=== PATIENT | male | born 1955 | race Caucasian/White ===

== ENCOUNTER 2016-08-12 16:09 | Inpatient (IN) | payer OTHER ==
[2016-08-12] MEDS ORDERED: NS 1,000 ML IV ONE (16:25)
[2016-08-12] MEDS ORDERED: methylPREDNISolone SOD SUCC 125 MG/2 ML VIAL IVP ONE (16:25)
[2016-08-12] MEDS ORDERED: RANITIDINE 50 MG/2 ML VIAL IVP ONE (16:25)
--- NOTE | 2016-08-12 16:25 | EDPHY ---
H & P Stated Complaint: throat discomfort, ?Allergic Reaction Source: Patient - Personal History Current Tetanus Diphtheria and Acellular Pertussis (TDAP): Yes Tetanus Vaccine Date: <10 yrs - Medical/Surgical History Hx Asthma: No Hx Chronic Respiratory Disease: No Hx Diabetes: No Hx Cardiac Disease: No Hx Renal Disease: No Hx Cirrhosis: No Hx Alcoholism: No Hx HIV/AIDS: No Hx Splenectomy or Spleen Trauma: No Other PMH: HTN, MELIDA - Social History Smoking Status: Never smoked Time Seen by Provider: 08/12/16 16:19 HPI/ROS: CHIEF COMPLAINT: Throat swelling HISTORY OF PRESENT ILLNESS: This is a 60-year-old male presenting to the emergency department complaining of throat swelling. Patient states he ate lunch about [id number] avocado soup with a roast beef sandwich, maybe about 30 minutes to an hour afterwards he was feeling like his throat closing with some difficulty swallowing, but did tolerate fluids without difficulty. Patient reports maybe "an allergic reaction to something I ate" . He states for the past couple hours he felt like it has worsened, no shortness of breath. Patient states he does not feel like he has something stuck in his throat. Some rash noted to his chest and face REVIEW OF SYSTEMS: Constitutional: No fever chills Eyes: No visual changes ENT: Report feels like his throat was closing Respiratory: No shortness of breath Cardiac: No chest pain Gastrointestinal: No nausea vomiting Musculoskeletal: No back pain Skin: Red rash to face and chest Neurological: No headache or dizziness (Mima Quevedo) - Physical Exam Exam: General Appearance: Alert, no distress, but appears uncomfortable Eyes: Pupils equal and round no pallor or injection. ENT, Mouth: Mucous membranes moist. Tonsillar edema, uvula midline no uvula edema, airway patent. No angioedema Respiratory: There are no retractions, lungs are clear to auscultation Cardiovascular: Regular rate and rhythm. Gastrointestinal: Abdomen is soft and nontender Neurological: No focal deficits Skin: Warm and dry, erythemic rash to chest and cheeks Musculoskeletal: Neck is supple nontender. Extremities: symmetrical, full range of motion. Psychiatric: Patient is oriented X 3, there is no agitation (Mima Quevedo) Constitutional: Initial Vital Signs Temperature (C) 36.7 C 08/12/16 16:11 Heart Rate 65 08/12/16 16:11 Respiratory Rate 18 08/12/16 16:11 Blood Pressure 166/111 H 08/12/16 16:11 O2 Sat (%) 97 08/12/16 16:11 O2 Delivery Mode Room Air Allergies/Adverse Reactions: No Known Allergies Allergy (Unverified 06/17/15 10:53) Home Medications: Medication Instructions Recorded Nebivolol HCl [Bystolic 5 mg (*)] 5 mg PO HS 07/09/15 Sildenafil Citrate [Viagra] 100 mg PO DAILY PRN 07/09/15 Acetaminophen [Tylenol 325mg (*)] 325 - 650 mg PO Q6 PRN #60 tab 07/10/15 Aspirin EC [Aspirin EC 325 mg (*)] 325 mg PO DAILY #20 tab 07/10/15 Docusate Sodium [Colace 100 MG (*)] 100 mg PO BID #20 cap 07/10/15 HYDROcodone/APAP 10/325 [Tillman 1 - 2 tab PO Q6 PRN #60 tab 07/10/15 10/325 (*)] Nebivolol HCl [Bystolic 5 mg (*)] 5 mg PO HS #0 tab 07/10/15 celeCOXIB [Celebrex (*)] 200 mg PO DAILY #20 cap 07/10/15 oxyCODONE IR [Oxycodone Ir (*)] 5 mg PO Q6 PRN #30 tab 07/10/15 Medical Decision Making - Diagnostics EKG Interpretation: EKG: Complete interpretation has been separately recorded in the [facility] archive. Summary impression: Sinus rhythm (Francisco Traylor) ED Course/Re-evaluation: Discussed plan of care: IV Benadryl, Solu-Medrol, ranitidine, ekg (Mima Quevedo) Other Provider: I evaluated and participated in the management of the patient. I also evaluated the patient independently. My co-signature indicates that I have reviewed this chart and I agree with the findings and plan of care as documented. My personal H&P findings include: The patient presents to the ED with sudden onset hoarseness, laryngeal pain after eating a roast beef sandwich. The patient is able to manage his secretions. PHYSICAL: General Appearance: Alert, mild discomfort with swallowing Eyes: Pupils equal and round no pallor or injection ENT, Mouth: No stridor, laryngitis noted Respiratory: There are no retractions, lungs are clear to auscultation Cardiovascular: Regular rate and rhythm Gastrointestinal: Abdomen is soft and nontender, no masses, bowel sounds normal Neurological: A&O, normal motor function, normal sensory exam, normal cranial nerves Skin: Warm and dry, no rashes Musculoskeletal: Neck is supple nontender Extremities: symmetrical, full range of motion The patient presents to emergency department laryngeal pain and hoarseness. The patient is able to drink water here without regurgitation. The etiology of his symptoms are uncertain. I did consult with Dr. Jorge Rodriguez who is on- call for ENT who will evaluate the patient. (Francisco Traylor) - Data Points Medications Given: Discontinued Medications Diphenhydramine HCl (Benadryl Injection) 50 mg IVP EDNOW ONE Stop: 08/12/16 16:26 Last Admin: 08/12/16 16:51 Dose: 50 mg Sodium Chloride (Ns) 1,000 mls @ 0 mls/hr IV ONCE ONE PRN Reason: Wide Open Stop: 08/12/16 16:26 Last Admin: 08/12/16 16:51 Dose: 1,000 mls Methylprednisolone Sodium Succinate (Solu-Medrol) 125 mg IVP EDNOW ONE Stop: 08/12/16 16:26 Last Admin: 08/12/16 16:51 Dose: 125 mg Ranitidine HCl (Zantac) 50 mg IVP EDNOW ONE Stop: 08/12/16 16:26 Last Admin: 08/12/16 16:51 Dose: 50 mg Departure - Departure Condition: Good Referrals: Veto Preciado MD [Primary Care Provider] - As per Instructions
--- NOTE | 2016-08-12 17:19 | CPEKG ---
Heart Rate: 58 RR Interval: 1034 P-R Interval: 184 QRSD Interval: 118 QT Interval: 428 QTC Interval: 421 P [place]: 44 QRS [place]: 23 T Wave [place]: 16 EKG Severity - ABNORMAL ECG - EKG Impression: SINUS RHYTHM EKG Impression: NONSPECIFIC INTRAVENTRICULAR CONDUCTION DELAY Electronically Signed By: Francisco Traylor 12-Aug-2016 17:20:46
[2016-08-12] MEDS ORDERED: DEXAMETHASONE 10 MG/ML VIAL IVP ONE (17:50)
[2016-08-12 18:12] LABS: % IMMATURE GRANULYOCYTES 0.3 % (0.0-1.1); ABSOLUTE IMMATURE GRANULOCYTES 0.02 10^3/uL (0.00-0.10); ADD DIFF? NO; ADD MORPH? NO; ADD SCAN? NO; ATYPICAL LYMPHOCYTE FLAG 0 (0-99); FRAGMENT RBC FLAG 0 (0-99); HEMATOCRIT 44.3 % (40.0-51.0); HEMOGLOBIN 14.9 g/dL (13.7-17.5); LEFT SHIFT FLG 0 (0-99); LIPEMIA HEMOLYSIS FLAG 80 (0-99); MEAN CELL HEMOGLOBIN 31.4 pg (27.9-34.1); MEAN CELL HEMOGLOBIN CONCENTR. 33.6 g/dL (32.4-36.7); MEAN CELL VOLUME 93.5 fL (81.5-99.8); MEAN PLATELET VOLUME 10.7 fL (8.7-11.7); PLATELET CLUMPS FLAG 0 (0-99); PLATELET COUNT 207 10^3/uL (150-400); RED BLOOD CELL COUNT 4.74 10^6/uL (4.40-6.38); RED CELL DISTRIBUTION WIDTH 13.1 % (11.5-15.2)
[2016-08-12 18:18] LABS: ANION GAP 10 mEq/L (8-16); CALCIUM 10.3 mg/dL (8.5-10.4); CARBON DIOXIDE 24 mEq/l (22-31); CHLORIDE 106 mEq/L (97-110); CREATININE 1.2 mg/dL (0.7-1.3); GLOMERULAR FILTRATION RATE > 60; GLUCOSE 114 mg/dL (70-100); POTASSIUM 4.2 mEq/L (3.5-5.2); SODIUM 140 mEq/L (134-144)
[2016-08-12] MEDS ORDERED: ONDANSETRON 4 MG/2 ML VIAL IVP PRN (18:30)
[2016-08-12] MEDS ORDERED: ONDANSETRON DISINTEGRATING 4 MG TAB PO PRN (18:30)
[2016-08-12] MEDS ORDERED: ACETAMINOPHEN 325 MG TAB PO PRN (18:30)
--- NOTE | 2016-08-12 18:56 | GCON ---
[f rep st] CONSULTATION ER CONSULTATION NOTE DATE OF CONSULTATION: 08/12/2016 REFERRING PHYSICIAN: Francisco Traylor MD REASON FOR CONSULTATION: Acute sore throat, complains of pain with swallowing. HISTORY: The patient is an otherwise healthy 60-year-old man who after eating lunch today began to feel a sense of left-sided throat discomfort and fullness. The patient had a feeling that maybe agustin ething stuck in his throat, and he presents to the ER. PHYSICAL EXAMINATION: GENERAL: Patient is awake, alert, and oriented. His voice is rather quiet, but he is speaking in full sentences with no stridor or retractions. HEENT: Ear exam shows normal external ears, ear canals, and tympanic membranes bilaterally with no signs of middle ear disease. Nasal exam anteriorly is clear. Oral cavity exam shows no trismus. Palate, tongue, and floor of mo uth are normal in appearance. Tonsils appear symmetric. No posterior erythema is noted. NECK: Ex am shows no swelling or adenopathy which is palpable. There is very slight discomfort with deep pal pation of the left side of the neck. PROCEDURE: A flexible fiberoptic laryngoscopy. I passed the flexible laryngoscope through the right nostril. Nasal passage is clear. I looked at the left side, and likewise there was no signs of polyps or infection within either side of the nose . Nasopharyngeal exam is normal. Eustachian tube openings and fossa of Rosenmuller are normal in a ppearance. Hypopharynx larynx exam is notable for watery edema of the left half of the epiglottis and extending down onto the left area of epiglottic fold. The vocal cords were both fully visible and moved norm ally on phonation and respiration. No pooling of secretions is noted. Base of tongue is normal. T he inferior aspect of the tonsil on the left side showed some erythema. I took a culture of the left side of the throat with a swab which will be sent off for a wound cultu re. LABORATORY DATA: I requested a CBC with differential, which is pending. IMPRESSION/PLAN: Acute epiglottitis. The patient is stable at this point in time. He has already gotten 1 dose of Solu-Medrol. I reviewed the case with the emergency room physician and actually sh owed him the physical findings on laryngoscopy. The patient is given ceftriaxone and 12 mg of IV De cadron in the ER and will be admitted for observation in the step-down intensive care unit. If his symptoms worsen, he might require stabilization of the airway. I did discuss this with the patient and his . On rare occasions, people can have rapid and significant improvement; however, someti mes it can go in the other direction and they can end up with life-threatening airway compromise. Thank for this consultation. /[id number]/MODL
[2016-08-12] MEDS ORDERED: hydrALAZINE 20 MG/ML VIAL IVP PRN (20:08)
--- NOTE | 2016-08-12 20:31 | GHP ---
[f rep st] HISTORY AND PHYSICAL DATE OF ADMISSION: 08/12/2016 CHIEF COMPLAINT: Difficulty swallowing. HISTORY OF PRESENT ILLNESS: A 60-year-old male with limited past medical history who [facility] the morning of presentation. Patient notes eating lunch and afterwards having a sensation of soreness in his throat that then progressed to a sensation that his throat was tighten ing and closing. He started developing difficulty swallowing including his own secretions, therefor e, sought care in the emergency department. In the ED he is denying any chest pain, denying shortness of breath, denying cough, denying recent f shruti, chills or upper respiratory infection. Denying abdominal pain, nausea, vomiting, dysuria, he maturia or lower extremity edema. Has no known sick contacts. Explains that his throat closing sen sation has been progressive since after lunch with a very scary feeling of not being able to get air or manage his own secretions. At the time of my evaluation, he is describing that this improved mi ldly, approximately 10% from when he initially presented to the ED. PAST MEDICAL HISTORY: Hypertension. SOCIAL HISTORY: Negative for tobacco. Drinks several drinks of alcohol a day. Denies illicit drug s. Occasional use of marijuana. FAMILY HISTORY: Positive for hypertension. ADVANCED DIRECTIVES: Patient is full cor, full tube. His would be his medical decision-maker. REVIEW OF SYSTEMS: A 10-point review of systems is negative with the exception of that reported in the HPI. PHYSICAL EXAMINATION: VITAL SIGNS: Blood pressure 166/111, heart rate 61, respiratory rate 18, 97% on room air. GENERAL: This is a healthy-appearing male in mild distress. HEENT: Exam is normal for dry mucous membranes. Oropharynx without obvious swelling or pustules. No notable cervical lym phadenopathy. CARDIAC: Patient is regular rate and rhythm. PULMONARY: Clear to auscultation bila terally. GASTROINTESTINAL: Positive bowel sounds. ABDOMEN: Soft and nontender. MUSCULOSKELETAL: Negative for any lower extremity edema. SKIN: Exam is negative for any rashes. NEUROLOGIC: He is alert and oriented x3. PSYCHIATRIC: He is pleasant and cooperative on interview and examination . DATA: EKG, which I personally reviewed and interpreted, shows sinus rhythm, normal axis, normal int ervals, with no acute ST-T changes. LABORATORY: White count is 6.3, hematocrit 44, creatinine 1.2. ASSESSMENT AND PLAN: This is a 60-year-old male presenting with throat swelling and pain. 1. Acute epiglottitis. Patient was evaluated by ENT in the emergency department. Flexible laryngo scope did show epiglottitis. The patient is treated with IV steroids, IV antibiotics and will be ad mitted to the stepdown unit for close monitoring. Cultures were obtained during his ENT examination . We will follow those. 2. Hypertension. Will continue his home medications when he is cleared to take oral intake. Until that time, can use p.r.n. IV medications. 3. Prophylaxis with Lovenox. DIET: N.p.o. DISPOSITION: I expect less than 2 midnights as the patient response to IV steroids and treatment fo r epiglottitis. Discussed the case with the emergency room physician. The patient will be admitted to the stepdown unit overnight for observation and care. /[id number]/MODL
[2016-08-13 05:20] LABS: % IMMATURE GRANULYOCYTES 0.5 % (0.0-1.1); ABSOLUTE IMMATURE GRANULOCYTES 0.05 10^3/uL (0.00-0.10); ADD DIFF? NO; ADD MORPH? NO; ADD SCAN? NO; ATYPICAL LYMPHOCYTE FLAG 0 (0-99); FRAGMENT RBC FLAG 0 (0-99); HEMATOCRIT 45.1 % (40.0-51.0); HEMOGLOBIN 15.9 g/dL (13.7-17.5); LEFT SHIFT FLG 0 (0-99); LIPEMIA HEMOLYSIS FLAG 90 (0-99); MEAN CELL HEMOGLOBIN 31.5 pg (27.9-34.1); MEAN CELL HEMOGLOBIN CONCENTR. 35.3 g/dL (32.4-36.7); MEAN CELL VOLUME 89.5 fL (81.5-99.8); MEAN PLATELET VOLUME 10.3 fL (8.7-11.7); PLATELET CLUMPS FLAG 0 (0-99); PLATELET COUNT 207 10^3/uL (150-400); RED BLOOD CELL COUNT 5.04 10^6/uL (4.40-6.38); RED CELL DISTRIBUTION WIDTH 12.9 % (11.5-15.2)
--- NOTE | 2016-08-13 08:34 | SOAPPROG ---
SOAP Progress Note Assessment/Plan: Assessment: Mr Dempsey says his throat feels better. Still some difficulty swallowing. Some trismus. NPScope: Bright red left AE fold. Edema to left AE fold. Good glottic airway. WBC is elevated. He did get decadron and ceftriaxone. Plan: Neck CT with contrast. Cool mist by face tent. Increase decadron to 16 mg IV q 8 hours. WIll continue to follow. D/w nursing staff and Chuy. 08/13/16 08:31 Subjective: feels better. Objective: Vital Signs Temp Pulse Resp BP Pulse Ox 37.0 C 82 18 136/108 H 92 08/13/16 08:00 08/13/16 08:00 08/13/16 08:00 08/13/16 08:00 08/13/16 08:00 Laboratory Results 08/13/16 05:00 08/12/16 08/13/16 08/14/16 05:59 05:59 05:59 Intake Total 1140 Balance 1140 ICD10 Worksheet Patient Problems: Problems Problem Status Onset Lesion of epiglottis Acute - ICD10 Problem Qualifiers (1) Lesion of epiglottis
[2016-08-13] MEDS ORDERED: DEXAMETHASONE 10 MG/ML VIAL IVP SCH (09:00)
[2016-08-13] MEDS ORDERED: IOPAMIDOL (ISOVUE-300) 100 ML BTL IV ONE (09:12)
[2016-08-13] MEDS: ENOXAPARIN 40 MG/0.4 ML SYR SC SCH (09:13)
[2016-08-13] MEDS: cefTRIAXone 1 GM in D5W 50 ML IV SCH (09:14)
[2016-08-13] MEDS: DEXAMETHASONE 10 MG/ML VIAL IVP SCH ×3 (09:14→21:54)
--- NOTE | 2016-08-13 11:16 | SOAPPROG ---
SOAP Progress Note Assessment/Plan: Assessment: Mr Dempesy says his throat feels better. Still some difficulty swallowing. Some trismus. NPScope: Bright red left AE fold. Edema to left AE fold. Good glottic airway. WBC is elevated. He did get decadron and ceftriaxone. Plan: Neck CT with contrast. Cool mist by face tent. Increase decadron to 16 mg IV q 8 hours. WIll continue to follow. D/w nursing staff and Chuy. 08/13/16 08:31 Objective: Vital Signs Temp Pulse Resp BP Pulse Ox 37.0 C 88 16 136/108 H 96 08/13/16 08:00 08/13/16 08:32 08/13/16 08:32 08/13/16 08:00 08/13/16 08:32 Laboratory Results 08/13/16 05:00 08/12/16 08/13/16 08/14/16 05:59 05:59 05:59 Intake Total 1140 Balance 1140 ICD10 Worksheet Patient Problems: Problems Problem Status Onset Lesion of epiglottis Acute - ICD10 Problem Qualifiers (1) Lesion of epiglottis
--- NOTE | 2016-08-13 12:28 | GCON ---
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 HISTORY OF PRESENT ILLNESS: The patient is a very pleasant 60-year-old white male with a past medic al history of hypertension. He presented to the emergency room with difficulty swallowing and sore throat. He felt like his throat was closing progressively yesterday afternoon. He was seen in the emergency room, diagnosed with epiglottitis and placed on steroids and antibiotics, and admitted to the SDU. In discussion with the patient, he states he feels somewhat better. He still has difficul ty swallowing. He is able to speak clearly. He denies any cough or production of sputum. PAST MEDICAL HISTORY: Significant for hypertension. ALLERGIES: No known to medications. SOCIAL HISTORY: No history of tobacco use. He drinks several drinks of alcohol per day. He has go od family support. PHYSICAL EXAM: VITAL SIGNS: Blood pressure is 136/108, pulse 82, respiration 18, temperature 37, o xygen saturation 92% on room air. GENERAL: He is a well-developed, well-nourished 60-year-old whit e male who is resting comfortably in no acute distress. HEENT: Eyes: IVANA. EOMI. Throat exam wa s deferred. NECK: Mild swelling. There is no stridor. HEART: Regular rate and rhythm without mu rmurs, rubs, or gallops. LUNGS: Clear to auscultation. No wheeze or rhonchi. ABDOMEN: Soft, non tender. Bowel sounds present in all 4 quadrants. EXTREMITIES: No clubbing, cyanosis, or edema. LABORATORY DATA: White count is 11, hemoglobin 15, hematocrit 45, platelet count is 207. Sodium 14 0, potassium 4.2, chloride 106, CO2 24, BUN 23, creatinine 1.2, glucose is 114. Group A strep is ne gative. CT scan of the neck shows epiglottitis with diffuse mucous membrane thickening extending from the le ft lingular tonsil at the superior aspect of the vocal cords. IMPRESSION: 1. Epiglottitis. 2. Hypertension. RECOMMENDATIONS: 1. Agree with current antibiotic coverage. 2. Agree with increasing Decadron. 3. Close cardiovascular monitoring. 4. N.p.o. for now. /[id number]/MODL
[2016-08-13] MEDS: LR 1,000 ML IV SCH (12:32)
--- NOTE | 2016-08-13 12:48 | HOSPPROG ---
Hospitalist Progress Note Assessment/Plan: #Acute epiglottis: CT this morning negative for abscess -cont Decadron, CTX and close monitoring of airway. Stable nowl, but at high risk for clinical deterioration #Benign HTN: resume home meds once swallowing better #Disp: patient warrant inpt admission given high risk for airway compromise Subjective: denies SOB Objective: Vital Signs Temp Pulse Resp BP Pulse Ox 37.0 C 88 16 136/108 H 96 08/13/16 08:00 08/13/16 08:32 08/13/16 08:32 08/13/16 08:00 08/13/16 08:32 Laboratory Results 08/13/16 05:00 08/12/16 08/13/16 08/14/16 05:59 05:59 05:59 Intake Total 1140 Balance 1140 - Physical Exam Constitutional: no apparent distress Eyes: PERRL Ears, Nose, Mouth, Throat: moist mucous membranes, other (difficult to open airway) Cardiovascular: regular rate and rhythym Respiratory: no respiratory distress Gastrointestinal: normoactive bowel sounds Genitourinary: no bladder fullness Skin: warm, normal color Musculoskeletal: full muscle strength Neurologic: AAOx3 Psychiatric: interacting appropriately Lymph, Heme, Immunologic: lymphadenopathy (cervical LAD, TTP on left) ICD10 Worksheet Patient Problems: Problems Problem Status Onset Lesion of epiglottis Acute
[2016-08-13] MEDS: CLINDAMYCIN 600 MG/DEXTROSE 50 ML IV SCH ×2 (12:52→18:07)
--- NOTE | 2016-08-13 15:23 | GCON ---
[f rep st] CONSULTATION We scoped the patient at the bedside again. He feels subtlety perhaps. On flexible nasal laryngoscopy, the erythema is still on the left base of tongue/ lingual tonsils and left area of epiglottic fold. There is certainly some edema to the left arytenoid but he has a good glottic airway. I think it is subtly better than this morning on scoping. He and I agreed to continue the current plan. We will continue to reevaluate. /[id number]/MODL MTDD
--- NOTE | 2016-08-13 18:33 | GCON ---
[f rep st] CONSULTATION I reviewed the patient's CT scans. I spoke with his nursing staff. His scans do not show an obviou s abscess. Certainly has some edema and phlegmon in the left base of tongue and lingual tonsillar a dior. I did review the scans with my partner, Dr. Carrera, as well. Since the patient is improving, we wi ll continue medical management with close observation for now. I stressed the importance with the p neva and his to communicate with us if he seems to be worsening in any way. He said when he was admitted his throat pain was 12/10 and now it is 4/10 in terms of his difficulty swallowing or p ain when he swallows. 1. I did add cool mist which is helping nicely. 2. I will keep him n.p.o. I did start some fluids, 125 mL/hr. 3. I did add clindamycin 600 mg every 6 hours to his antibiotic regimen. /[id number]/MODL
--- NOTE | 2016-08-13 18:38 | GPROG ---
[f rep st] PROGRESS NOTE SUBJECTIVE: The patient feels "much, much better." Swallowing better. Speaking better. PHYSICAL EXAM: VITAL SIGNS: He is afebrile. Vital signs are stable. HEENT: Voice is much improved. Flexible nasal laryngoscopy was performed and he does still have some edema in that left area epiglo ttic fold and there is certainly some edema to his left arytenoid. He has a good glottic airway and mobile cords. It is certainly stable. Definitely not worse. IMPRESSION: Overall improving. RECOMMENDATIONS: 1. Spoke with the nursing staff as well as the patient and his . Will continue Decadron, ceftr iaxone, clindamycin, high humidity and cool mist. 2. We will continue to follow along. /[id number]/MODL
[2016-08-14] MEDS: CLINDAMYCIN 600 MG/DEXTROSE 50 ML IV SCH ×3 (00:38→11:43)
[2016-08-14] MEDS: LR 1,000 ML IV SCH (00:38)
[2016-08-14] MEDS: DEXAMETHASONE 10 MG/ML VIAL IVP SCH ×2 (06:39→13:22)
[2016-08-14 07:48] VITALS: RESP 15
[2016-08-14] MEDS: cefTRIAXone 1 GM in D5W 50 ML IV SCH (08:45)
[2016-08-14] MEDS: ENOXAPARIN 40 MG/0.4 ML SYR SC SCH (08:47)
--- NOTE | 2016-08-14 08:55 | GPROG ---
[f rep st] PROGRESS NOTE DATE OF SERVICE: 08/14/2016 SUBJECTIVE: The patient feels much, much better. OBJECTIVE: Afebrile. Blood pressure just slightly elevated. Voice is much stronger. The patient was seen and examined with Dr. Jorge Rodriguez. We also reviewed scans together as well . Flexible nasal laryngoscopy was performed together and his left lingula tonsil is much improved. Much less erythema. The left aryepiglottic fold still has some edema but it is much less erythemat ous. The left arytenoid is less edematous as well. He has a good glottic airway. No trismus. Opens his mouth widely. Parotids are palpably benign. Neck without thyromegaly or lym phadenopathy. Cultures show mixed alicia. IMPRESSION: Improving left base of tongue aryepiglottic fold phlegmon. RECOMMENDATIONS: 1. Dr. Rodriguez and I discussed with his nursing staff in detail as well as the patient. Will hav e him get his noon dose of clindamycin as well as Dexamethasone. He is getting his ceftriaxone at 9 o'clock. 2. Will allow him to go home today with clindamycin 300 mg p.o. t.i.d. for ten days. Diarrhea warn ing was given. 3. Omnicef 300 mg p.o. b.i.d. for ten days. 4. Decadron taper. Scripts were written and given to the nursing staff. 5. He will go home and he can use his CPAP at home. 6. He will follow up on Tuesday with Dr. Rodriguez in the office. /[id number]/MODL
--- NOTE | 2016-08-14 09:36 | PDINTPN ---
Economic Geographer Progress Note Assessment/Plan: Assessment: * Epiglottitis-markedly improved * Hypertension * Respiratory-currently at baseline Plan: Likely home today Subjective: Resting comfortably. Denies any shortness of breath cough or production of sputum. He has no difficulty swallowing. Objective: Vital Signs Temp Pulse Resp BP Pulse Ox 36.8 C 77 15 142/81 H 90 L 08/14/16 07:45 08/14/16 07:45 08/14/16 07:45 08/14/16 07:45 08/14/16 07:45 08/13/16 08/14/16 08/15/16 05:59 05:59 05:59 Intake Total 2140 Balance 2140 Physical Exam - Physical Exam General Appearance: alert, no apparent distress EENT: PERRL/EOMI Neck: non-tender, full range of motion, supple, normal inspection Respiratory: chest non-tender, lungs clear, normal breath sounds Cardiac/Chest: normal peripheral pulses, regular rate, rhythm Peripheral Pulses: 2+: carotid (R), carotid (L), femoral (R), femoral (L), dorsalis-pedis (R), dorsalis-pedis (L) Abdomen: normal bowel sounds, non-tender, soft Male Genitalia: deferred Rectal: deferred ICD10 Worksheet Patient Problems: Problems Problem Status Onset Lesion of epiglottis Acute
[2016-08-14 12:07] VITALS: BP 124/94; PULSE 85; TEMP 97.8; O2SAT 92
--- NOTE | 2016-08-14 13:05 | GDS ---
[f rep st] DISCHARGE SUMMARY DISCHARGE DIAGNOSES: 1. Acute epiglottitis. 2. Benign hypertension. HISTORY: This is a 60-year-old male who presented with difficulty swelling. HOSPITAL COURSE: The patient was diagnosed with acute epiglottitis by laryngoscope in the emergency department. He was treated with IV antibiotics and steroids. He was continued to be followed by David NT. On day of discharge, his pain and difficulty swallowing had almost completely resolved. He has been eating normally. He will be discharged on a course of antibiotics as well as steroids. Greater than 30 minutes was spent on discharge. /[id number]/MODL
== END 2016-08-14 13:43 | disposition home or self-care (01) | DRG 153 ==
LOC: F2N 22:24 → OBSVTOIN 08-13 12:45
PROVIDERS: ADMIT Hospitalist; ATTEND Internal Medicine
PROC: 0CJS7ZZ Inspection of Larynx, Via Natural or Artificial Opening (ICD-10-PCS; principal; 2016-08-13)
DX: J05.10 Acute epiglottitis without obstruction (principal); I10 Essential (primary) hypertension
CPT/HCPCS: 96374; G0378; J0696; J1200; J1650; J2780; Q9967

== ENCOUNTER 2016-12-11 10:30 | Inpatient (IN) | payer OTHER ==
[2016-12-11] MEDS ORDERED: NS 1,000 ML IV ONE (10:38)
--- NOTE | 2016-12-11 10:41 | EDPHY ---
H & P Stated Complaint: DIZZY, FATIGUE, L ARM NUMBNESS Time Seen by Provider: 12/11/16 10:30 HPI/ROS: CHIEF COMPLAINT: Pre syncope HISTORY OF PRESENT ILLNESS: The patient is a 61-year-old man with a history of hypertension and heart palpitations and sleep apnea who comes to the emergency department complaining of a pre syncopal event during the Alzheimer's walk today. He states that he typically walks 8 miles each day and that it does not cause any problems. Today after only a few miles he began to feel a brief numbness in his left thigh that resolved almost immediately but then he developed numbness in his left arm and lightheadedness and became diaphoretic. He decided to stop walking. He never experienced any chest pain or shortness of breath. No nausea vomiting. He denies any focal weakness. Paramedics arrived and found him to be hypertensive and diaphoretic. There EKG was unremarkable. The patient states he now feels back to normal. He had a stress test in 2013 that was negative. REVIEW OF SYSTEMS: Constitutional: denies: chills, fever, recent illness, recent injury EENTM: denies: blurred vision, double vision, nose congestion Respiratory: denies: cough, shortness of breath Cardiac: See HPI Gastrointestinal/Abdominal: denies: abdominal pain, diarrhea, nausea, vomiting, blood streaked stools Genitourinary: denies: dysuria, frequency, hematuria, pain Musculoskeletal: denies: joint pain, muscle pain Skin: denies: lesions, rash, jaundice, bruising Neurological: denies: headache, numbness, paresthesia, tingling, dizziness, weakness Hematologic/Lymphatic: denies: blood clots, easy bleeding, easy bruising Immunologic/allergic: denies: HIV/AIDS, transplant EXAM: GENERAL: Well-appearing, overweight and in no acute distress. HEAD: Atraumatic, normocephalic. EYES: Pupils equal round and reactive to light, extraocular movements intact, sclera anicteric, conjunctiva are normal. ENT: TMs normal, nares patent, oropharynx clear without exudates. Moist mucous membranes. NECK: Normal range of motion, supple without lymphadenopathy or JVD. LUNGS: Breath sounds clear to auscultation bilaterally and equal. No wheezes rales or rhonchi. HEART: Regular rate and rhythm without murmurs, rubs or gallops. ABDOMEN: Soft, nontender, normoactive bowel sounds. No guarding, no rebound. No masses appreciated. BACK: No CVA tenderness, no spinal tenderness, step-offs or deformities EXTREMITIES: Normal range of motion, no pitting or edema. No clubbing or cyanosis. NEUROLOGICAL: Cranial nerves II through XII grossly intact. Normal speech, normal gait. 5/5 strength, normal movement in all extremities, normal sensation PSYCH: Normal mood, normal affect. SKIN: Warm, dry, normal turgor, no visible rashes or lesions. Source: Patient Exam Limitations: No limitations - Personal History Current Tetanus/Diphtheria Vaccine: Yes Tetanus Vaccine Date: <10 yrs - Medical/Surgical History Hx Asthma: No Hx Chronic Respiratory Disease: No Hx Diabetes: No Hx Cardiac Disease: No Hx Renal Disease: No Hx Cirrhosis: No Hx Alcoholism: No Hx HIV/AIDS: No Hx Splenectomy or Spleen Trauma: No Other PMH: HTN, MELIDA - Family History Significant Family History: No pertinent family hx - Social History Smoking Status: Never smoked Alcohol Use: Sober Drug Use: None Constitutional: Initial Vital Signs Temperature (C) 36.9 C 12/11/16 10:36 Heart Rate 67 12/11/16 10:36 Respiratory Rate 16 12/11/16 10:36 Blood Pressure 147/99 H 12/11/16 10:36 O2 Sat (%) 98 12/11/16 10:36 O2 Delivery Mode Room Air O2 (L/minute) 2 Allergies/Adverse Reactions: No Known Allergies Allergy (Unverified 06/17/15 10:53) Home Medications: Medication Instructions Recorded Nebivolol HCl [Bystolic 5 mg (*)] 5 mg PO HS #0 tab 07/10/15 Aspirin [Aspirin 81mg (*)] 81 mg PO HS 08/12/16 Sildenafil Citrate [Viagra 50 MG 100 mg PO DAILY PRN 08/12/16 (*)] Medical Decision Making - Diagnostics EKG Interpretation: An EKG obtained and was read and documented in trace view. Please see trace view for full reading and report. Sinus rhythm, no acute ischemic changes, similar to previous ED Course/Re-evaluation: 11:20 a.m. while in the room on the monitor the patient had a 12 second run of V -tach that spontaneously converted back to sinus rhythm. We will place him on defibrillator pads and admit to the hospital. I have paged Cardiology. He is personal friends with Dr. Alexander. 11:[address] Alexander is here evaluating the patient. 11:50 a.m. they will take him to the clinical lab specialist but would like to admit to the hospital service. Spoke with Dr. Mejia who accepted for Dr. Tyler. Differential Diagnosis: Partial list of the Differential diagnosis considered include but were not limited to; arrhythmia, acute coronary disease and although unlikely based on the history and physical exam, I also considered infection, pneumothorax, CVA. Critical Care Time: Critical care time spent by me, Dr. Mars exclusive with this patient was 35 minutes, exclusive of the PA time exclusive of procedures. The organ system that was at risk was cardiovascular and I gave monitoring, consultation and admission to prevent worsening of the patient's condition - Data Points Laboratory Results: Laboratory Results 12/11/16 10:40 12/11/16 10:40 Medications Given: Atorvastatin Calcium (Lipitor) 10 mg PO DAILY JESSEE Stop: 06/10/17 11:14 Last Admin: 12/12/16 14:15 Dose: 10 mg Enoxaparin Sodium (Lovenox) 40 mg SC DAILY JESSEE Stop: 06/10/17 08:59 Last Admin: 12/12/16 14:15 Dose: 40 mg Nebivolol (Bystolic) 5 mg PO HS JESSEE Stop: 06/09/17 20:59 Last Admin: 12/12/16 20:32 Dose: 5 mg Discontinued Medications Aspirin (Aspirin) 81 mg PO HS JESSEE Stop: 06/09/17 20:59 Last Admin: 12/11/16 20:18 Dose: 81 mg Aspirin Buffered (Aspirin Ec) 325 mg PO ONCALL ONE Stop: 12/11/16 11:56 Last Admin: 12/11/16 15:53 Dose: Not Given Diazepam (Valium) 5 mg PO ONCALL ONE Stop: 12/11/16 11:56 Last Admin: 12/11/16 15:53 Dose: Not Given Diphenhydramine HCl (Benadryl) 25 mg PO ONCALL ONE Stop: 12/11/16 11:56 Last Admin: 12/11/16 15:53 Dose: Not Given Sodium Chloride (Ns) 1,000 mls @ 0 mls/hr IV EDNOW ONE; Wide Open PRN Reason: Protocol Stop: 12/11/16 10:39 Last Admin: 12/11/16 10:48 Dose: 1,000 mls Departure - Departure Disposition: [facility] Inpatient Acute Clinical Impression: Pre-syncope, V tach Condition: Fair
[2016-12-11 10:47] LABS: % IMMATURE GRANULYOCYTES 0.3 % (0.0-1.1); ABSOLUTE IMMATURE GRANULOCYTES 0.02 10^3/uL (0.00-0.10); ADD DIFF? NO; ADD MORPH? NO; ADD SCAN? NO; ATYPICAL LYMPHOCYTE FLAG 0 (0-99); FRAGMENT RBC FLAG 0 (0-99); HEMATOCRIT 44.7 % (40.0-51.0); LEFT SHIFT FLG 0 (0-99); LIPEMIA HEMOLYSIS FLAG 80 (0-99); MEAN CELL HEMOGLOBIN 31.6 pg (27.9-34.1); MEAN CELL HEMOGLOBIN CONCENTR. 33.6 g/dL (32.4-36.7); MEAN CELL VOLUME 94.3 fL (81.5-99.8); MEAN PLATELET VOLUME 10.2 fL (8.7-11.7); PLATELET CLUMPS FLAG 10 (0-99); PLATELET COUNT 215 10^3/uL (150-400); RED BLOOD CELL COUNT 4.74 10^6/uL (4.40-6.38); RED CELL DISTRIBUTION WIDTH 13.2 % (11.5-15.2)
--- NOTE | 2016-12-11 10:47 | CPEKG ---
Heart Rate: 62 RR Interval: 968 P-R Interval: 184 QRSD Interval: 108 QT Interval: 416 QTC Interval: 423 P Shelton: 48 QRS Shelton: 33 T Wave Shelton: 16 EKG Severity - NORMAL ECG - EKG Impression: SINUS RHYTHM Electronically Signed By: Abdi Mars 11-Dec-2016 10:51:05
[2016-12-11 11:01] LABS: ANION GAP 11 mEq/L (8-16); CALCIUM 10.4 mg/dL (8.5-10.4); CARBON DIOXIDE 26 mEq/l (22-31); CHLORIDE 104 mEq/L (97-110); CREATININE 1.1 mg/dL (0.7-1.3); GLOMERULAR FILTRATION RATE > 60; GLUCOSE 85 mg/dL (70-100); POTASSIUM 4.6 mEq/L (3.5-5.2); SODIUM 141 mEq/L (134-144)
[2016-12-11 11:12] LABS: TROPONIN I < 0.012 ng/mL (0-0.034)
[2016-12-11] MEDS ORDERED: ACETAMINOPHEN 325 MG TAB PO PRN ×2 (11:55→15:46)
[2016-12-11] MEDS ORDERED: ASPIRIN EC 325 MG TAB PO ONE (11:55)
[2016-12-11] MEDS ORDERED: diphenhydrAMINE 25 MG CAP PO ONE (11:55)
[2016-12-11] MEDS ORDERED: NITROGLYCERIN 0.4 MG BTL SL PRN ×2 (11:55→13:53)
[2016-12-11] MEDS ORDERED: TEMAZEPAM 15 MG CAP PO PRN (11:55)
[2016-12-11] MEDS ORDERED: DIAZEPAM 5 MG TAB PO ONE (11:55)
[2016-12-11] MEDS ORDERED: LIDOCAINE 1% 300 MG/30 ML SDV ONE (12:12)
[2016-12-11] MEDS ORDERED: IOPAMIDOL (ISOVUE-370) 150 ML BTL IV ONE ×2 (12:13→12:17)
[2016-12-11] MEDS ORDERED: MIDAZOLAM 2 MG/2 ML VIAL ONE ×2 (12:16→12:52)
--- NOTE | 2016-12-11 13:04 | GHP ---
[f rep st] HISTORY AND PHYSICAL DATE OF ADMISSION: 12/11/2016 INDICATION FOR ADMISSION: Lightheadedness, left-sided numbness and evidence of nonsustained ventricular tachycardia on telemetry monitoring in the emergency department. HISTORY OF PRESENT ILLNESS: The patient is a pleasant 61-year-old gentleman with a past medical history of hypertension, sleep apnea, and status post left total knee replacement, who was in his usual state of health until earlier today. 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 He began to feel lightheaded and diaphoretic. He states the left leg numbness resolved, but then developed left arm numbness. At this point, he sat down. He noticed becoming more and more diaphoretic prompting him to call 12-31- to obtain medical attention. He was evaluated by paramedics and brought to [facility] for further evaluation. His workup with paramedics demonstrated hypertensive and diaphoretic. EKG was unremarkable. Upon his arrival into the emergency room, his initial workup was unremarkable. On telemetry, he did develop a 12 run beat of nonsustained ventricular tachycardia. This was asymptomatic. He denied any palpitations, dizziness, lightheadedness, or near syncope. He denied any associated diaphoresis. He has no complaints of chest pain or chest pressure. The episode resolved spontaneously, and he is back in sinus rhythm, in the mid 60s. His ECG demonstrates sinus rhythm with normal intervals, and nonspecific interventricular conduction delay, with QRS duration of 108 milliseconds. The patient states he has noticed increasing fatigue over the last several weeks. His notes while at dinner last night, he looked fatigued. He even commented to his that he felt tired and wished to just go home, which was unusual for him. Currently, at the time of my exam, he is resting comfortably. He is hemodynamically stable. REVIEW OF SYSTEMS: A 10-point review of systems is negative, except for those outlined in H and P above. PAST MEDICAL HISTORY: Hypertension, sleep apnea, left knee replacement, recent episode of acute epiglottitis, which is resolved completely. MEDICATIONS ON ADMISSION: Include aspirin 81 mg daily, Bystolic 5 mg daily, Sildenafil 50 mg p.o. p.r.n. ALLERGIES: To medications: None. SOCIAL HISTORY: The patient works here in [place]. 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 He is . He lives with his . He is a lifelong nonsmoker. Drinks approximately 1 glass of wine per night. FAMILY HISTORY: No family history of premature coronary artery disease. PHYSICAL EXAMINATION: VITAL SIGNS: Blood pressure 147/99, heart rate of 67, oxygen saturation 98% on room air, temperature 36.9. GENERAL: He is awake, alert, oriented and appropriate, no apparent distress. NECK: There is no evidence of JVP or carotid bruits. LUNGS: Clear to auscultation bilaterally. CARDIAC: S1, S2. Regular rate and rhythm. No murmurs, rubs, or gallops. ABDOMEN: Soft, nontender, nondistended. No pulsatile mass. EXTREMITIES: There is no evidence of cyanosis, clubbing or edema. DATA: White blood cell count is 6.2, hemoglobin 15, hematocrit 44.7, platelet count 215. Sodium 141, potassium 4.6, chloride 104, bicarb 26, BUN 19, creatinine 1.1, glucose 85, calcium 10.4, troponin less than 0.012. EKG demonstrates normal sinus rhythm at 62 beats per minute, with normal axis and normal intervals. Isolated T-wave inversions in lead 3. Nonspecific interventricular conduction delay with QRS duration of 180 milliseconds. Telemetry demonstrates 12-beat run of nonsustained, asymptomatic ventricular tachycardia. IMPRESSIONS: The patient is a pleasant 61-year-old gentleman with a history of hypertension and sleep apnea, who had an episode of acute onset of left leg and left arm numbness with marked diaphoresis. Initial evaluation by paramedics found him to be hypertensive and diaphoretic. These findings are not consistent with vasovagal like symptoms. He has no neurologic deficits at this time. He did develop a 12-beat run of asymptomatic ventricular tachycardia. In the setting of multiple risk factors for heart disease, recent complaints of increasing fatigue, coupled with the events of earlier today, as well as a 12- beat run of VT, recommend diagnostic left heart catheterization to be performed at this time. Further workup to follow from there pending the results of left heart catheterization. If left heart catheterization was unremarkable, would recommend cardiac MRI and ultimately an EP study. PLAN: 1. Diagnostic left heart catheterization. 2. Risks and benefits have been reviewed with the patient in detail. He is agreeable to pursue. No contraindications to dual antiplatelet therapy. 30 minutes spent coordinating care. /[id number]/MODL MTDD
[2016-12-11] MEDS ORDERED: OXYCODONE/APAP 5/325 TAB PO PRN (13:53)
[2016-12-11] MEDS ORDERED: ATROPINE SULFATE 1 MG/10 ML SYR IVP PRN (13:53)
[2016-12-11] MEDS ORDERED: ONDANSETRON 4 MG/2 ML VIAL IVP PRN (13:53)
[2016-12-11] MEDS ORDERED: HYDROCODONE/APAP 5/325 TAB PO PRN (13:53)
--- NOTE | 2016-12-11 14:19 | CPIP ---
[f rep st] INVASIVE CARDIAC PROCEDURE INDICATION FOR PROCEDURE: Near syncope, left arm numbness, and nonsustained ventricular tachycardia . PROCEDURE: After informed consent was obtained, Mr. Dempsey was brought to the cardiac catheterization lab where he was prepped and draped in a sterile fashion. Using 1% lidocaine, the right groin was anesthetized. Using the modified Seldinger technique, the a 6-Yemeni catheter was placed in the rig ht common femoral artery without complications. A JL4 catheter was used to take images of the left coronary anatomy in multiple projections. The JL4 catheter was exchanged over a guidewire for a JR4 catheter. JR4 catheter was used to take images of the right coronary anatomy in multiple projectio ns. The JR4 catheter was exchanged over a guidewire for angled pigtail catheter. Angled pigtail ca theter was used to cross the aortic valve. Left ventriculogram was performed. LVEDP was assessed. Aortic valve gradient pullback was assessed. Angled pigtail catheter was removed over a guidewire without complications. Imaging of the right common femoral artery site was also obtained demonstrat ing appropriate placement of 6-Yemeni sheath above the bifurcation of the right common femoral arter y. FINDINGS: LEFT MAIN: Left main coronary artery is normal size and caliber and trifurcates into a l eft anterior descending ramus and circumflex vessel. There is no evidence of coronary disease withi n the left main. LEFT ANTERIOR DESCENDING: Gives rise to a moderate-size 1st diagonal branch that runs parallel to t he LAD. There are some mild luminal irregularities within the left anterior descending artery. RAMUS INTERMEDIUS BRANCH: Demonstrates some mild luminal irregularities in the proximal segment. N o flow-limiting disease. LEFT CIRCUMFLEX ARTERY: Nondominant vessel. There is some mild ostial narrowing of the circumflex of no greater than 10%. The remainder of the circumflex vessel demonstrates some mild luminal irreg ularities. RIGHT CORONARY ARTERY: Large caliber dominant vessel that bifurcates into PDA and PLV branch. No e vidence of coronary disease within the right coronary artery. HEMODYNAMICS: LVEF of 60% to 65%. LVEDP 25 mmHg. Aortic valve gradient none. CONCLUSIONS: 1. Mild nonobstructive coronary artery disease. 2. Normal left ventricular size and function with LVEF of 60% to 65%. 3. LVEDP mildly elevated at 25 mmHg. PLAN: Patient will be admitted to [facility] telemetry. Plan for cardiac MRI and complete 2D echocardi ogram. Pending results, consider EP study for Tuesday morning. /[id number]/MODL
--- NOTE | 2016-12-11 15:59 | PDGENHP ---
History and Physical History and Physical: CC:Near-syncope with some left-sided weakness and numbness HISTORY: This patient was doing well until he was doing a benefit walk today. During the walk he started to feel somewhat lightheaded. Shortly after the onset of lightheadedness he felt some numb sensation in his left leg. He sat down and the lightheadedness went away. He got up to start walking again and the left leg numbness went away totaling approximately 1 or 2 minutes. However as left leg numbness was going away he had onset of left arm and hand numbness and worsening again of lightheadedness. He does state that he felt perhaps some mild weakness in his left upper extremity during this but no changes in vision, comprehension, speech or other focal neurologic symptoms. During this there was no headache, no fever symptoms, no vertigo, no chest pain, no palpitations, no nausea but he was fairly sweaty and clammy. He sat down again and called 911 and was transported here. It is reported to me that he had an unremarkable blood pressure on EKG with the fractionating still operator evaluation at the scene and during transport. His symptoms apparently resolved entirely during transport and he has been asymptomatic since arrival at the hospital. During his assessment in the emergency room today the patient was on cardiac monitor technician and had a 12 beat run of ventricular tachycardia. This was asymptomatic. Currently he is without any symptoms and says he feels just fine. I am seeing him after he has had his coronary angiography which was unrevealing. Notably the patient tells me he has never had any fainting spells in his life. He did have some palpitations a few years ago and was assessed with home cardiac monitoring where it sounds like he was identified as having some "Skipped beats " but did not have atrial fibrillation or any ventricular arrhythmias. He was not treated directly for the heart issues but there was suspicion at that time of sleep apnea and he was tested and does have sleep apnea which he treats. The patient has never had anything like a TIA or stroke before. ROS: A comprehensive 10 system review revealed no other significant findings PAST MEDICAL HISTORY: Obstructive sleep apnea on chronic CPAP which he uses nightly Hypertension on Bystolic Total knee replacement Erectile dysfunction Epiglottitis episode FAMILY MEDICAL HISTORY: No cardiac or cerebral vascular history in the family that he is aware of SOCIAL HISTORY: no tobacco use, very little alcohol, and no street drugs lives with his . 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 MEDICATIONS: The patients list has been reconciled by our clinical pharmacist in the EMR. I have reviewed the list and ordered appropriate medicines. PHYSICAL EXAMINATION: Vital Signs: Currently with normal vital signs and no fever Bar Examiner: currently with sinus rhythm on monitor, as above had 1 brief run of nonsustained VT in the ER Examination: General: alert, relaxed Neurologic: oriented, good mentation, normal speech/language, normal plexiglas former, no focal weakness, no pronator drift, normal pupils Skin: warm, dry, good color, no rash HEENT: normal Neck: no mass or jvd Resps: relaxed Lungs: clear breath sounds Heart: regular, no murmur Abdomen: soft, nondistended, nontender, +BS, no mass Upper Extremities: normal Lower Extremities: no edema, warm No Bleeding or bruising LABORATORY DATA: normal CBC metabolCORONARY ANGIOGRAPHY: panel and troponin 12 LEAD EKG: done in the ER, my interpretation of the tracing: Sinus rhythm with no abnormalities noted CORONARY ANGIOGRAPHY: His study shows mild nonobstructive coronary disease with good ejection fraction 60% and no other concerning abnormalities ASSESSMENT: -Near-syncope during walking -TIA symptoms have resolved entirely with left-sided numbness in the limbs and some left upper extremity weakness -Episode of nonsustained VT emergency room on monitor, asymptomatic -nonobstructive mild coronary artery disease on angiography today -History of hypertension; usually well controlled, the higher systolic numbers today are likely secondary to his presenting symptoms -History of sleep apnea on chronic CPAP PLANS: I reviewed Dr. alfaro notes and plans regarding further assessment of his ventricular tachycardia and agree Admission hospital on cardiac monitor technician TIA standard orders including cardiac monitor technician, neuro checks, his swallow eval, lipid panel, neurovascular imaging, echocardiogram, etc DVT prophylaxis follow blood pressures very closely Will have him continue use of his CPAP here in the hospital I have reviewed the patient's case in detail with Dr. Mars
[2016-12-11] MEDS: NEBIVOLOL HCL 5 MG TAB PO SCH (20:18)
--- NOTE | 2016-12-11 20:24 | ECHO ---
[id number] + + [address] : : [place] [address] : : [phone] + + Adult Echocardiographic Report + + :Name: OLIVERIO JUAREZ Study Date: 12/11/2016 04:29 PM BP: 162/95 mmHg : : Hospital Admission Number: [id number] : :: 1955 Gender: Male Height: 76 in : :Age: 61 yrs Race: WH Weight: 255 lb : :Reason For Study: vt : : BSA: 2.5 meters2: :History: VT : + + MMode/2D Measurements \T\ Calculations IVSd: 1.2 cm RVDd: 3.9 cm FS: 30.0 % Ao root diam: LVPWd: 1.2 cm LVIDd: 5.9 cm EDV(Teich): 3.7 cm LVIDs: 4.1 cm 175.1 ml LA dimension: ESV(Teich): 4.0 cm 76.3 ml EF(Teich): 56.4 % LVLd ap4: 10.5 cm SV(MOD-sp4): EDV(MOD-sp4): 140.0 ml 277.0 ml LVLs ap4: 9.1 cm ESV(MOD-sp4): 137.0 ml EF(MOD-sp4): 50.5 % Normal Measurement Values: + + :LVIDd (3.5-5.7cm) IVSd (0.6-1.1cm) LVPWd (0.6-1.1cm) Aortic Root (2.0-3.7cm)Left Atrium (1.5-4.0cm): :LV Vol(d) (76-115ml) LV Vol(s) (29-48ml) Ejec Fraction (50-65%)PV Donnie (0.6- 1.2m/s) TV Donnie (0.4-1.0m/s) : :MV E Donnie (0.8-1.0m/s)MV A Donnie (0.3-1.0m/s)LVOT Donnie (0.7-1.2m/s) Asc Ao Donnie ( 0.9-1.8m/s) : + + Doppler Measurements \T\ Calculations MV E max donnie: Ao V2 max: LV V1 max: PA V2 max: 44.9 cm/sec 110.3 cm/sec 58.2 cm/sec 77.3 cm/sec MV A max donnie: Ao max P.9 mmHg LV V1 max PG: PA max P.2 cm/sec 1.4 mmHg 2.4 mmHg MV E/A: 0.73 MV dec time: 0.40 sec Left Ventricle The left ventricle is mildly dilated. There is mild concentric left ventricular hypertrophy. Left ventricular systolic function is low normal. Ejection Fraction = 50%. Grade I Diastolic Dysfunction. No regional wall motion abnormalities noted. Right Ventricle The right ventricle is normal in size and function. Atria The left atrium is moderately dilated. The Left Atrial Volume is 46 ml/m2. The right atrium is mildly dilated. IAS is thin and anuersymal. Injection of contrast documented an interatrial shunt. A patent foramen ovale is present. Mitral Valve The mitral valve is normal in structure and function. There is no mitral valve stenosis. There is trace mitral regurgitation. Tricuspid Valve The tricuspid valve is normal in structure and function. There is no tricuspid stenosis. No tricuspid regurgitation. Aortic Valve The aortic valve is trileaflet. Mild aortic leaflet sclerosis. There is no aortic stenosis. Trace aortic regurgitation. Pulmonic Valve The pulmonic valve is normal in structure and function. There is no pulmonic valvular stenosis. Trace pulmonic valvular regurgitation. Great Vessels The aortic root is normal size. Pericardium/Pleural There is no pericardial effusion. Conclusion A two-dimensional transthoracic echocardiogram with M-mode and Doppler was performed. Agitated saline administered to rule shunt. There is mild concentric left ventricular hypertrophy. Left ventricular systolic function is low normal. Ejection Fraction = 50%. The left atrium is moderately dilated. The Left Atrial Volume is 46 ml/m2. IAS is thin and anuersymal. Trace aortic regurgitation. Trace pulmonic valvular regurgitation. The left ventricle is mildly dilated. There is trace mitral regurgitation. Injection of contrast documented an interatrial shunt. The right atrium is mildly dilated. A patent foramen ovale is present. Final Reading Physician: Rogelio Alexander electronically signed on 12/11/2016 08:23 PM Ordering Physician: Kai Ayala Performed By: Sabra Bernal
[2016-12-11] MEDS ORDERED: ASPIRIN 81 MG CHEWABLE TAB PO SCH (21:00)
[2016-12-12 05:22] LABS: CHOLESTEROL 179 mg/dL (140-220); CHOLESTEROL/HDL RATIO 2.98 RATIO (1.00-4.97); HIGH DENSITY LIPOPROTEIN 60 mg/dL (40-65); LDL/HDL RATIO 1.68 RATIO (1.00-3.64); LOW DENSITY LIPOPROTEIN 101 mg/dL (80-100); MAGNESIUM 2.1 mg/dL (1.6-2.3); NON-HIGH DENSITY LIPOPROTEIN 119 mg/dL (90-129); TRIGLYCERIDE 92 mg/dL (40-150); VERY LOW DENSITY LIPOPROTEINS 18 mg/dL (8-25)
--- NOTE | 2016-12-12 10:05 | HOSPPROG ---
Hospitalist Progress Note Assessment/Plan: DIAGNOSES: -Near-syncope during walking -TIA symptoms have resolved entirely with left-sided numbness in the limbs and some left upper extremity weakness at onset of sxs -Episode of nonsustained VT emergency room on monitor, asymptomatic -nonobstructive mild coronary artery disease on angiography 12/11 -PFO with biatrial enlargement -some decrease in EF to 50% (prior 60%) and some mild LV dilation -History of hypertension; usually well controlled, the higher systolic numbers today are likely secondary to his presenting symptoms -History of sleep apnea on chronic CPAP PLANS: -continue 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 -cardiac MRI today -plan on likely EP study tomorrow or tuesday -neurology consult -add statin -if nothing found here cardiac clifton will need to consider Link or other outpt monitor to watch for AF SUBJECTIVE: feels "much better" no recurrence of his TIA sxs, or any other neuro sxs No palpitations, angina, shortness of breath No syncopal type symptoms OBJECTIVE Vitals reviewed: stable without fever 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, 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: Exam: alert oriented skin warm dry color ok resps not labored lungs clear BSs heart regular abd soft nondistended nontender, bowel sounds present limbs warm, no edema iv site ok Laboratory data: LDL 101 Echocardiogram: EF 50 (down from 60 in past), LV dilation is less than in past ( 6.9->5.9); There is a PFO with biatrial enlargement Carotid Doppler US: no flow limiting stenosis of carotids or posterior circ Objective: Vital Signs Temp Pulse Resp BP Pulse Ox 36.8 C 65 18 157/97 H 94 12/12/16 07:58 12/12/16 07:58 12/12/16 07:58 12/12/16 07:58 12/12/16 07:58 ICD10 Worksheet Patient Problems: Problems Problem Status Onset Pre-syncope Acute V tach Acute Lesion of epiglottis Acute
[2016-12-12] MEDS ORDERED: GADOBUTROL 10 ML VIAL IVP ONE (10:58)
[2016-12-12] MEDS ORDERED: IOPAMIDOL (ISOVUE 370) 100 ML BTL IV ONE (14:09)
[2016-12-12] MEDS: ATORVASTATIN CALCIUM 10 MG TAB PO SCH (14:15)
[2016-12-12] MEDS: ENOXAPARIN 40 MG/0.4 ML SYR SC SCH (14:15)
--- NOTE | 2016-12-12 14:16 | GCON ---
[f rep st] CONSULTATION NEUROLOGY CONSULTATION DATE OF CONSULTATION: 12/12/2016 CHIEF COMPLAINT: TIA. HISTORY OF PRESENT ILLNESS: The patient is a 61-year-old gentleman, who was doing a benefit walk yesterday when he started feeling lightheaded and became a little bit concerned. Then, he felt a patch of numbness in his left leg which resolved after 1 or 2 minutes, and then he felt numbness again in his left arm for 1 or 2 minutes. At that time, he became concerned and came to the emergency department via 911. There was no definite weakness or facial involvement on the left. While in the emergency room, he had a 12-beat run of ventricular tachycardia that was asymptomatic. Because of the cardiac dysrhythmia, he was admitted for further cardiac and neurologic evaluation. He has had cardiac monitoring in the past and states he has had some "skipped beats ," but not atrial fibrillation or any ventricular dysrhythmia. He has not had any neurologic history. Since being in the hospital, he had an echocardiogram which showed moderate dilation of the left atrium and some LV hypertrophy, along with right atrial dilation. He has had a cardiac catheterization which showed mild nonobstructive coronary artery disease. Carotid Doppler shows no evidence of flow-limiting carotid stenosis. He is currently being sent to cardiac MRI, where I evaluated him in the MRI suite, and there were no obvious abnormalities there, as he is completely resolved and back to baseline neurologically. He was taking aspirin 81 mg daily when this event occurred. REVIEW OF SYSTEMS: A 10-point review of systems is done and only pertinent for the HPI. PAST MEDICAL HISTORY: MELIDA on CPAP and hypertension. FAMILY HISTORY: No heritable neurologic disease. SOCIAL HISTORY: Does not use tobacco. and lives with his . MEDICATIONS: Please see Dr. Tyler's history and physical. ALLERGIES: Please see Dr. Tyler's history and physical. PHYSICAL EXAMINATION: VITAL SIGNS: Blood pressure 102/57, temperature 36.8, respirations 16, O2 sat 99%. GENERAL: In no acute distress. Very pleasant. He was evaluated in the MRI suite. NEUROLOGIC: Higher mental function was normal. No aphasia. On cranial nerve exam, he had no facial weakness, numbness , or extraocular movement abnormalities. On motor exam, there was no obvious focal weakness or convulsive activity. seventy minutes on the floor and in the MRI suite reviewing the patient's records and cardiac testing, directly interviewing the patient, and coordination of care with the other providers. IMPRESSION AND PLAN: 1. Cardiac dysrhythmia. 2. Transient ischemic attack. At this point, I think it would be most prudent to consider yesterday's event as a transient ischemic attack. It is not clear to me how the cardiac dysrhythmia, namely ventricular tachycardia, played a specific role. In any case, the echocardiogram shows significant by bi-atrial dilation, which may suggest underlying paroxysmal atrial fibrillation. I recommend we increase his aspirin to 325 mg daily, coated, with meals. He will need statin therapy. We will complete the TIA evaluation with a CT angiography of the head and neck, and MRI of the brain without contrast. If there is no evidence of atrial fibrillation while in the hospital, he can continue anti-platelet therapy, with an outpatient 30-day event monitor. Otherwise, if he does have paroxysmal atrial fibrillation, then certainly oral anticoagulation would be indicated. We are switching services today. Therefore , I will sign out this patient to my colleague, Dr. Jones, who will review the results and can make recommendations accordingly. Thank you for this consultation. /[id number]/MODL MTDD
[2016-12-12] MEDS: NEBIVOLOL HCL 5 MG TAB PO SCH (20:32)
[2016-12-13] MEDS: ASPIRIN EC 325 MG TAB PO SCH (10:18)
[2016-12-13] MEDS: ATORVASTATIN CALCIUM 10 MG TAB PO SCH (10:18)
[2016-12-13] MEDS ORDERED: IOPAMIDOL (ISOVUE 370) 100 ML BTL IV ONE ×2 (11:03→11:24)
[2016-12-13] MEDS: ENOXAPARIN 40 MG/0.4 ML SYR SC SCH (12:23)
--- NOTE | 2016-12-13 13:21 | HOSPPROG ---
Hospitalist Progress Note Assessment/Plan: * near syncope/? TIA * Possible atrial fibrillation as cause * MRI and CT angiograms were negative * episode of nonsustained V-tach * EP study tomorrow * Nonobstructive coronary disease * mild decrease in EF * Probable relieved related to PVCs per Cardiology * history of obstructive sleep apnea * history of hypertension Subjective: Feels back to normal. Objective: Vital Signs Temp Pulse Resp BP Pulse Ox 36.7 C 82 14 153/99 H 99 12/13/16 04:00 12/13/16 12:00 12/13/16 12:00 12/13/16 12:00 12/13/16 12:00 12/12/16 12/13/16 12/14/16 05:59 05:59 05:59 Intake Total 850 Balance 850 Discussed with Cardiology Tele personally viewed interpreted normal sinus rhythm - Physical Exam Constitutional: no apparent distress, appears nourished, not in pain Eyes: anicteric sclera, EOMI Ears, Nose, Mouth, Throat: moist mucous membranes, hearing normal Cardiovascular: regular rate and rhythym, no murmur, rub, or gallop Respiratory: no respiratory distress, no rales or rhonchi, clear to auscultation Gastrointestinal: normoactive bowel sounds, soft, non-tender abdomen, no palpable masses Skin: warm Neurologic: AAOx3 Psychiatric: interacting appropriately, not anxious, not encephalopathic, thought process linear ICD10 Worksheet Patient Problems: Problems Problem Status Onset Pre-syncope Acute V tach Acute Lesion of epiglottis Acute
--- NOTE | 2016-12-13 14:46 | NEUROPROG ---
Assessment: [id number] CC: F/U for possible TIA HPI: Please see Dr. Ha Mir note from 12/12/16. Briefly, he was admitted on for a feeling of lightheadedness and transient altered sensation on his left leg then his left arm (resolved after 1-2 min for each episode). He went to [facility] and was noted to have a 12 beat run of VTach that was asymptomatic. He was admitted for cardiology evaluation and for neurologic consultation. Dr. Levy saw the patient and felt likely had a TIA so ordered a TIA evaluation (CTA head/neck, brain MRI). Dr. Levy also recommended starting a statin and changing ASA 81 mg qd to [address]. [address] Levy evaluated him he had no neurologic deficits. F/U on 12/13/16. Brain MRI and CTA head/neck unremarkable. No new complaints and pt denies any neurologic symptoms. PMHx: MELIDA on CPAP, HTN SHx: no tobacco FHx: no heritable neurologic diseases Labs: 12/12/16- LDL 101H Rads: 12/11/16- Carotid U/S: no flow limiting stenosis 12/11/16- TTE: no afib seen and no cardiac thrombus, EF 50% 12/11/16- 24 hour telemetry: no afib seen 12/13/16- Brain MRI w/o con: no acute stroke, mild white matter disease 12/13/16- CTA head/neck: no significant vessel abnormality Assessment: 1. Possible TIA: His symptoms may have been from a TIA (1-2 minutes of altered sensation). It is not fully clear but as a TIA is possible so we will increase aspirin dosing and add a statin. We will also perform outpatient 30 day cardiac monitoring for any pAfib. Plan: - Change aspirin 81 mg qd to ASA 325 mg - recommend outpatient prolonged cardiac monitoring for 30 days given TIA and VTach (concern for possible paroxysmal afib) - Work closely with PCM to ensure blood pressure < 140/90, H1AC < 7.0 and LDL < 70 - Start statin for LDL goal < 70 (101) - F/U 4 weeks after discharge with Dr. Levy Neurology will sign off, please call for any questions if needed. 35 min spent with patient, majority of time spent counseling on TIA and prognosis and treatment options. Objective: Vital Signs Temp Pulse Resp BP Pulse Ox 36.7 C 82 14 153/99 H 99 12/13/16 04:00 12/13/16 12:00 12/13/16 12:00 12/13/16 12:00 12/13/16 12:00 12/12/16 12/13/16 12/14/16 05:59 05:59 05:59 Intake Total 850 Balance 850 Allergies/Adverse Reactions: No Known Allergies Allergy (Unverified 06/17/15 10:53)
[2016-12-13] MEDS: NEBIVOLOL HCL 5 MG TAB PO SCH (20:08)
[2016-12-14 05:20] LABS: HEMATOCRIT 39.9 % (40.0-51.0); HEMOGLOBIN 13.9 g/dL (13.7-17.5); MEAN CELL HEMOGLOBIN CONCENTR. 34.8 g/dL (32.4-36.7); MEAN CELL VOLUME 91.9 fL (81.5-99.8); RED BLOOD CELL COUNT 4.34 10^6/uL (4.40-6.38); RED CELL DISTRIBUTION WIDTH 13.1 % (11.5-15.2)
[2016-12-14 05:36] LABS: ANION GAP 10 mEq/L (8-16); CALCIUM 9.9 mg/dL (8.5-10.4); CARBON DIOXIDE 22 mEq/l (22-31); CHLORIDE 107 mEq/L (97-110); GLOMERULAR FILTRATION RATE > 60; GLUCOSE 91 mg/dL (70-100); MAGNESIUM 1.9 mg/dL (1.6-2.3); SODIUM 139 mEq/L (134-144)
[2016-12-14] MEDS ORDERED: BENZOCAINE UNIT DOSE SPRAY HURRICAINE MM ONE (06:40)
[2016-12-14] MEDS ORDERED: NS 1,000 ML IV ONE (06:40)
[2016-12-14] MEDS ORDERED: fentaNYL 100 MCG/2 ML INJ IVP ONE (06:40)
[2016-12-14] MEDS ORDERED: MIDAZOLAM 2 MG/2 ML VIAL IVP ONE (06:40)
[2016-12-14] MEDS ORDERED: PROPOFOL 200 MG/20 ML VIAL ONE ×2 (08:25→15:41)
[2016-12-14 11:21] LABS: APTT 28.3 SEC (23.0-38.0); INR 1.1 (0.83-1.16); PROTIME(PATIENT) 14.1 SEC (12.0-15.0)
--- NOTE | 2016-12-14 11:23 | PDCARPN ---
Cardiology Progress Note Chief Complaint: Presented with left arm and leg parathesias. Assessment/Plan: Assessment: 1. Left sided parathesieas consistent with TIA 2. NSVT 12 beat run in ED 3. hx of PVC's 4. Non obstrucitve CAD 5. PFO with ASA 6. MELIDA on chronic CPAP 7. LVEF 50% Plan: 1. EP study today to eval for inducible VT 2. If EP study is negative, will plan for Zio patch as an out patient. Ultimately if Zio is negative, will place Medtronic implantable Loop 3. Aspirin 325 mg daily 4. Atorvastatin 10 mg daily 5. Continue Bystolic 5 mg daily 6. No indication for PFO closure at this time. 12/14/16 11:23 Subjective: Chuy is feeling well. No new neurologic complaints since his out patient left sided parathesias last Tuesday. No evidence of atrial fibrillaton on telemetry. Occasional runs of bigeminy. No VT. He has undergone extensive work up including Left heart cath (mild non obstrucitve cad), LVEF of 50% on echo with mild LV cavity dilitation, moderate LAE, mild SHIRAZ and PFO with ASA. GHULAM shows no left atrial appendage thrombus, intraatrial septum is aneurysmal with few bubbles crossing interatrial septum on agitated saline contrast. Cardiac MRI with no infiltrative process or evidence of LV non compaction or ARVD. CTA of head and neck demonstrate mild carotid plaque. MRI brain unremarkable. In the setting of moderate left atrial enlargement, hx of MELIDA and hypertension, in the setting of TIA symptoms, most likely eitilogy is Paroxysmal Atrial Fibrillation. None seen to date. Reviewed/Discussed With: family, hospitalist, multidisciplinary team Time Spent With Patient: 30 minutes Objective: Vital Signs (8 Hrs) Temp Pulse Resp BP Pulse Ox 12/14/16 06:58 36.7 C 68 16 139/84 H 98 12/14/16 04:00 36.7 C 76 18 132/82 H 97 Intake/Output (24 Hrs) 12/13/16 12/14/16 12/15/16 05:59 05:59 05:59 Intake Total 850 500 Balance 850 500 Intake: Oral (ml) 850 500 Other: Intake Quantity Yes Sufficient Number of Voids Toilet 1 1 Number of Stools Toilet 1 Result Diagrams: 12/14/16 05:12/14/16 05:07 Telemetry: NSR - Physical Exam Constitutional: WDWN Eyes: PERRL Neurologic: AAOx3 Psychiatric: cooperative ICD10 Worksheet Patient Problems: Problems Problem Status Onset Pre-syncope Acute V tach Acute Lesion of epiglottis Acute
--- NOTE | 2016-12-14 11:34 | CPIP ---
[f rep st] INVASIVE CARDIAC PROCEDURE DATE OF PROCEDURE: 12/14/2016 PROCEDURE PERFORMED: Transesophageal echocardiogram. INDICATIONS FOR TRANSESOPHAGEAL ECHOCARDIOGRAM: New TIA like symptoms with left-sided weakness, cou pled with evidence of atrial septal aneurysm and PFO on transthoracic study, in anticipation of EP s tudy to be performed later today. DESCRIPTION OF PROCEDURE: After an informed consent was obtained, the patient was brought to the pr rdiovascular unit. With the assistance of Anesthesia and after consents were sign for anesthesia, a bite block was placed. Appropriate level of sedation was achieved with propofol and GHULAM probe was passed without incident. Images were obtained of all cardiac structures. The primary focus was on the interatrial septum, as well as the left atrial appendage. There was no evidence of left atrial appendage thrombus. There was evidence of atrial septal aneurysm with positive agitated saline cont rast study, with minimal bubbles crossing the interatrial septum. There was evidence of Chiari netw ork within the right atrium. There was mild mitral regurgitation. LVEF approximately 50%. Please see complete echo report for full details. The patient tolerated the procedure well. GHULAM probe was removed without incident. The patient woke from propofol sedation without complications. He was f eeling well when I reviewed images with the patient. PLAN: 1. No indication for PFO closure. 2. EP study to be performed later today. 3. Will plan to follow up with the patient as an outpatient. /[id number]/MODL
[2016-12-14] MEDS: ENOXAPARIN 40 MG/0.4 ML SYR SC SCH (11:47)
[2016-12-14] MEDS: ASPIRIN EC 325 MG TAB PO SCH (11:47)
[2016-12-14] MEDS: ATORVASTATIN CALCIUM 10 MG TAB PO SCH (11:47)
[2016-12-14] MEDS ORDERED: LIDOCAINE 1% 300 MG/30 ML SDV ONE (15:23)
[2016-12-14] MEDS ORDERED: ISOPROTERENOL HCL/D5W 0.2 MG/50 ML BAG IV ONE (15:24)
[2016-12-14] MEDS ORDERED: BUPIVACAINE 0.5% 30 ML SDV ONE (15:24)
[2016-12-14] MEDS ORDERED: HEPARIN 10,000 UNIT/10 ML MDV ONE (15:24)
[2016-12-14] MEDS ORDERED: MIDAZOLAM 2 MG/2 ML VIAL ONE (15:40)
[2016-12-14] MEDS ORDERED: fentaNYL 100 MCG/2 ML INJ ONE (15:41)
--- NOTE | 2016-12-14 17:10 | EPPROC ---
Electrophysiology Procedure Note: DIAGNOSTIC ELECTROPHYSIOLOGIC STUDY Procedures performed: 1. Fluoroscopy 2. EP evaluation with RA/RV/LA pace/record, with arrhythmia induction 3. EP evaluation with RA/RV pace record, insert/reposition catheter, with arrhythmia induction 4. Programmed stimulation + pacing after IV drug INDICATION: Dizziness Nonsustained VT noted in ED PROCEDURE: Catheters & Anesthesia: The patient arrived in the Electrophysiology Laboratory in the fasting state. The right clavicular region, right groin, & left groin area were prepped & draped in the usual sterile manner. Anesthesiologist adminstered sedation. Appropriate non-invasive blood pressure, pulse oximetry & end-tidal CO2 monitoring was established. All catheters were placed percutaneously using the modified Seldinger technique , and advanced into position under fluoroscopic guidance. One #7 Finnish deflectable octapolar electrode catheter was advanced to the His-bundle position via the R femoral vein (2mm spacing). This was then placed at RV apex One #7 Finnish deflectable catheter with 10 pairs of electrodes was placed via the right femoral vein into the coronary sinus. Programmed stimulation was performed from the right atrium, right ventricle and coronary sinus (left atrium). Parahisian pacing demonstrated VA block at baseline. SCL 1035 ms AH 105 ms HV 50 ms Antegrade WBB @ 540 ms Retrograde VA block No sustained reentrant tachycardia was induced during programmed stimulation at baseline or during graded doses of isoproterenol up to 2 mcg/min. Ventricular programmed stimulation was performed using standard protocol (2 pacing sites, 2 basic cycle lengths, up to 3 extrastimuli at twice pacing threshold). Ventricular burst pacing and long/short sequence pacing was also performed. Frequent PVC were noted: PVC #1, LBBB, superior axis (negative in III, biphasic in II, biphasic with S> R in aVF), negative V1-V3, positive in V4-V6 The catheters were removed. The patient was transferred to the cardiovascular holding area in stable condition. Vascular access sheaths were removed in the holding area. There were no apparent complications. CONCLUSIONS 1. Normal sinus and AV node function. 2. No evidence of accessory AV pathway presence. 3. No sustained arrhythmias induced. 4. Frequent monomorphic PVC 5. No apparent complications. Patient Problems: Problems Problem Status Onset Lesion of epiglottis Acute Pre-syncope Acute V tach Acute
--- NOTE | 2016-12-14 18:13 | CPEKG ---
Heart Rate: 55 RR Interval: 1091 P-R Interval: 196 QRSD Interval: 120 QT Interval: 420 QTC Interval: 402 P Wood: 59 QRS Wood: 50 T Wave Wood: 38 EKG Severity - ABNORMAL ECG - EKG Impression: SINUS ARRHYTHMIA, RATE 44-70 EKG Impression: NONSPECIFIC INTRAVENTRICULAR CONDUCTION DELAY Electronically Signed By: Eddie Asencio 15-Dec-2016 07:33:32
[2016-12-14 20:12] VITALS: RESP 13; TEMP 98.8; O2SAT 93
[2016-12-14] MEDS: NEBIVOLOL HCL 5 MG TAB PO SCH (21:35)
[2016-12-14 22:50] VITALS: BP 137/91; PULSE 65
--- NOTE | 2016-12-16 17:28 | GDS ---
[f rep st] DISCHARGE SUMMARY DISCHARGE DIAGNOSES: 1. Possible transient ischemic attack. 2. Short-run of nonsustained ventricular tachycardia. 3. History of hypertension. 4. Obstructive sleep apnea. HISTORY: This is a 61-year-old male, who presented with lightheadedness and a patch of numbness in his left leg and his left arm, which resolved. In the emergency department, he was noted to have a 12-beat run of V tach. STUDIES: 1. Echocardiogram. 2. Angiogram. 3. Cardiac MRI. 4. CTA of head and neck. 5. Brain MRI. 6. GHULAM. 7. EP study. 8. Please see results in EMR for all the previous studies, and they were essentially normal. HOSPITAL COURSE: Patient admitted and the above studies were done. His symptoms never came back af ter the 1 or 2 minutes of numbness. He has not been seen to have any atrial fibrillation or more V tach. There is a suspicion that he might have some underlying atrial fibrillation at times. He yvonne l be followed up with Cardiology to have probable monitor implanted. TIME SPENT: Greater than 30 minutes was spent on discharge. /[id number]/MODL
== END 2016-12-14 23:47 | disposition home or self-care (01) | DRG 69 ==
LOC: EDUNIT# → F2N 14:12 → OBSVTOIN 15:46 → F2W 12-14 10:20
PROVIDERS: ADMIT Internal Medicine; ATTEND Internal Medicine
PROC: B2151ZZ Fluoroscopy of Left Heart using Low Osmolar Contrast (ICD-10-PCS; principal; 2016-12-11)
PROC: B2111ZZ Fluoroscopy of Multiple Coronary Arteries using Low Osmolar Contrast (ICD-10-PCS; principal; 2016-12-11)
PROC: 4A023N7 Measurement of Cardiac Sampling and Pressure, Left Heart, Percutaneous Approach (ICD-10-PCS; principal; 2016-12-11)
PROC: B246ZZ4 Ultrasonography of Right and Left Heart, Transesophageal (ICD-10-PCS; 2016-12-14)
PROC: 4A023FZ Measurement of Cardiac Rhythm, Percutaneous Approach (ICD-10-PCS; 2016-12-14)
PROC: 3E033KZ Introduction of Other Diagnostic Substance into Peripheral Vein, Percutaneous Approach (ICD-10-PCS; 2016-12-14)
DX: G45.9 Transient cerebral ischemic attack, unspecified (principal); I47.2 Ventricular tachycardia; I10 Essential (primary) hypertension; G47.33 Obstructive sleep apnea (adult) (pediatric); Z96.652 Presence of left artificial knee joint
CPT/HCPCS: A9585; C1731; C1760; C1769; J0461; J1644; J1650; J2250; J2704; J3010; Q9967

== ENCOUNTER 2017-04-13 07:44 | Day surgery (SDC) | payer OTHER ==
[2017-04-13] MEDS ORDERED: LIDOCAINE 1% 300 MG/30 ML SDV MISC ONE (08:15)
--- NOTE | 2017-04-13 12:57 | GPN ---
[f rep st] PROCEDURE NOTE DATE OF PROCEDURE: 04/13/2017 PROCEDURE PERFORMED: Medtronic implantable loop recorder. INDICATION FOR PROCEDURE: History of neurologic symptoms concerning for possible TIA. No evidence o f atrial fibrillation on previous workup to date. Plan for long-term monitoring to look for paroxysm al atrial fibrillation. PROCEDURE: After informed consent was obtained, the patient was brought to the cardiovascular center where he was prepped and draped in sterile fashion. The 5th intercostal space, 2 cm from midline wa s identified. Local anesthesia with 1% lidocaine without epinephrine was used. Once appropriate lev el of anesthesia was obtained locally, an incision was made with the scalpel provided in the [employer] c implantable loop recorder kit. This incision was modified with a scalpel blade. After incision wa s made, the loop recorder track was made with the [employer] tool provided. The device was then injec colin under the skin with appropriate placement. Hemostasis was achieved. Steri-Strips were applied a nd a dressing was applied. He tolerated the procedure well. Postoperative testing demonstrated appropriate capture of P waves. The patient tolerated the procedu re well. There were no postoperative complications. PLAN: 1. The patient will be discharged home. 2. Patient will be given postoperative instructions. 3. Patient will return to the office in 1 week for wound and device check. /[id number]/MODL
== END 2017-04-13 09:45 | disposition home or self-care (01) ==
LOC: FCATH 07:44
PROVIDERS: ATTEND Internal Medicine Cardiovascular Disease
PROC: 0JH632Z Insertion of Monitoring Device into Chest Subcutaneous Tissue and Fascia, Percutaneous Approach (ICD-10-PCS; principal; 2017-04-13)
DX: R29.818 Other symptoms and signs involving the nervous system (principal)
CPT/HCPCS: C1764

== ENCOUNTER 2018-08-08 09:34 | Observation (INO) | payer OTHER ==
[2018-08-08] MEDS ORDERED: NS 1,000 ML IV ONE (09:42)
[2018-08-08] MEDS ORDERED: BACITRACIN IRRIGATION/NS 50,000 UNITS/1,000 ML BTL IRR ONE (09:42)
[2018-08-08] MEDS ORDERED: DIAZEPAM 5 MG TAB PO ONE (09:42)
[2018-08-08] MEDS ORDERED: ceFAZolin 2 GM/DEXTROSE 100 ML IV ONE (09:42)
[2018-08-08] MEDS ORDERED: diphenhydrAMINE 25 MG CAP PO ONE (09:42)
[2018-08-08 10:17] LABS: PLATELET COUNT 179 10^3/uL (150-400)
--- NOTE | 2018-08-08 10:20 | PDGENHP ---
History & Physical Chief Complaint: h/o syncope History of Present Illness: h/o syncope Relevant Physical Exam: s1s2 rrr cta ao3 Cardiorespiratory Assessment: LINQ showed V pauses >4 s. Plan dual chamber pacemaker
--- NOTE | 2018-08-08 10:22 | PDANEPAE ---
ANE History of Present Illness here for PM placement ANE Past Medical History - Cardiovascular History Hx Hypertension: Yes Hx Arrhythmias: No Hx Chest Pain: No Hx Coronary Artery / Peripheral Vascular Disease: No Hx CHF / Valvular Disease: No Hx Palpitations: No Cardiovascular History Comment: PVC INTERMITTENT IMPROVED WITH C-PAP - Pulmonary History Hx COPD: No Hx Asthma/Reactive Airway Disease: No Hx Recent Upper Respiratory Infection: No Hx Oxygen in Use at Home: No Hx Sleep Apnea: Yes Pulmonary History Comment: SLEEP APNEA USES C-PAP - Neurologic History Hx Cerebrovascular Accident: No Hx Seizures: No Hx Dementia: No - Endocrine History Hx Diabetes: No - Renal History Hx Renal Disorders: No - Liver History Hx Hepatic Disorders: No - Neurological & Psychiatric Hx Hx Neurological and Psychiatric Disorders: Yes Neurological / Psychiatric History Comment: RANDOM MIGRAINE - Cancer History Hx Cancer: No - Congenital Disorder History Hx Congenital Disorders: No - GI History Hx Gastrointestinal Disorders: No - Chronic Pain History Chronic Pain: Yes (LT KNEE) - Surgical History Prior Surgeries: LT KNEE ACL AND MENISCUS REPAIR. APPY. LT EYE RETIONAL TEAR REPAIR. VASECTOMY ANE Review of Systems Review of Systems: - Exercise capacity Exercise capacity: >=4 METS ANE Patient History - Allergies Allergies/Adverse Reactions: No Known Allergies Allergy (Verified 08/01/18 10:56) - Home Medications Home medications: home medication list seen and reviewed Home Medications: Sildenafil Citrate [Viagra 50 MG (*)] 100 mg PO DAILY PRN 08/12/16 [Last Taken Unknown] Losartan Potassium [Cozaar 25 mg (*)] 50 mg PO DAILY 08/01/18 [Last Taken ] Melatonin [Melatonin 3 MG (*)] 3 mg PO HS PRN 08/01/18 [Last Taken 08/07/18] Multivitamins [Multivitamin (*)] 1 each PO DAILY 08/01/18 [Last Taken 08/07/18] - NPO status NPO Status: no food or drink >8 hours - Smoking Hx Smoking Status: Never smoked ANE Labs/Vital Signs - Labs Result Diagrams: 08/08/18 10:00 08/08/18 10:00 - Vital Signs Vital Signs: reviewed preoperatively; see RN documention for details Height: 193.04 cm Weight: 118.841 kg ANE Physical Exam - Airway Neck exam: FROM Mallampati Score: Class 1 - Pulmonary Pulmonary: no respiratory distress - Cardiovascular Cardiovascular: regular rate and rhythym - ASA Status ASA Status: III ANE Anesthesia Plan Anesthesia Plan: GA w LMA
[2018-08-08] MEDS ORDERED: IOPAMIDOL (ISOVUE-300) 100 ML BTL ONE (10:24)
[2018-08-08] MEDS ORDERED: BUPIVACAINE 0.75% 10 ML SDV ONE (10:24)
[2018-08-08] MEDS ORDERED: LIDOCAINE 1% 300 MG/30 ML SDV ONE (10:24)
[2018-08-08 10:25] LABS: INR 1.09 (0.83-1.16); PROTIME(PATIENT) 13.7 SEC (12.0-15.0)
[2018-08-08] MEDS ORDERED: MIDAZOLAM 2 MG/2 ML VIAL IVP ONE (10:27)
[2018-08-08] MEDS ORDERED: MIDAZOLAM 2 MG/2 ML VIAL ONE (10:28)
[2018-08-08] MEDS ORDERED: fentaNYL 100 MCG/2 ML INJ ONE ×3 (10:41→11:23)
[2018-08-08] MEDS ORDERED: PROPOFOL/EMULSION 500 MG/50 ML BOTTLE IV ONE (10:42)
[2018-08-08] MEDS ORDERED: ePHEDrine SULFATE 25 MG/5 ML SYR ONE (11:16)
[2018-08-08] MEDS ORDERED: MELATONIN 3 MG TAB PO PRN (12:10)
[2018-08-08] MEDS ORDERED: ACETAMINOPHEN 325 MG TAB PO PRN (12:11)
--- NOTE | 2018-08-08 12:14 | EPPROC ---
Electrophysiology Procedure Note: PROCEDURE PERFORMED: 1. Implantation of an A/V Pacemaker 2. Subclavian vein angiography 3. Fluoroscopy INDICATION: Syncope Ventricular pauses on LINQ PROCEDURE NOTE: Patient presented to the cardiac catherization laboratory in a fasting, post absorptive state. Dr. Rasheeda Ware administered moderate sedation. The left infraclavicular area was prepped and draped in the usual sterile fashion. Lidocaine plus bupivacaine was used for local anesthesia. Left subclavian venography was performed by injection of iodinated contrast into the left antecubital vein. This was done to assure patency of the vein and also to assess for any anatomical aberrations. Using a combination of blunt and sharp dissection and electrocautery, the dissection was carried down to the prepectoral fascia. A pocket was made in this anatomical plane. All bleeding was controlled with electrocautery. The pocket was packed with gauze soaked in antibiotic solution. Fluoroscopy was utilized during the entire procedure for venous access and placement of the leads. Using a direct stick technique the left extrathoracic axillary vein was accessed with 2 sticks using the modified Seldinger technique. Placement of the guidewires into the venous system was confirmed by low-pressure blood return and also by visualizing the guidewires advancing into the inferior vena cava. A purse string suture was applied around the guidewires. Two #7 Persian sheaths were advanced under fluoroscopic guidance over the guidewire. An active fixation ventricular lead was advanced into the right ventricular distal septum and screwed in place. An active fixation atrial lead was advanced into the right atrial appendage and screwed in place. The peel away sheaths were removed. Pacing thresholds, sensing parameters and lead impedances were measured. There was no diaphragmatic stimulation at maximum output. The leads were sutured to the prepectoral fascia with 3 nonabsorbable sutures each. The pocket was again inspected for any bleeding. The leads were attached to the pacemaker securely. The pacemaker was inserted into the pocket and secured in place with a nonabsorbable suture. Fluoroscopy was performed in BOLAND and HEBREW planes to verify right-sided placement of the leads. Also fluoroscopy of the pacemaker pocket was performed. The pacemaker pocket was closed in 3 layers with absorbable monocryl sutures and sheree. Appropriate dressing was applied. The patient left the cardiac catheterization laboratory in stable condition. Serial Numbers: 1. Device: Biotronik Edora 8DRT SN [id number] 2. Atrial Lead: Biotronik Solia S53 SN [id number] 3. Ventricular Lead: Biotronik Solia S58 SN [id number] Stimulation Thresholds & Impedance Measurements: 1. Atrial Lead P 3.3 mV 0.8 V 0.4 ms 526 ohm 2. Ventricular Lead R 18.4 mV 0.6 V 0.4 ms 741 ohm Joe Pacing Parameters 1. Pacing mode: DDD 2. Lower rate: 60 ppm 3. Upper tracking rate: 130 ppm Patient Problems: Problems Problem Status Onset Lesion of epiglottis Acute Pre-syncope Acute V tach Acute
--- NOTE | 2018-08-08 12:48 | POSTANESTH ---
Post Anesthetic Evaluation Cardiovascular Status: Normal, Stable Respiratory Status: Normal, Stable Level of Consciousness/Mental Status: Can Participate in Eval Pain Control: Adequate, Prn Tx Ordered Nausea/Vomiting Control: Adequate, Prn Tx Ordered Complications Possibly Related to Anesthesia: None Noted
--- NOTE | 2018-08-08 14:44 | CPEKG ---
Test Reason : OPEN Blood Pressure : / mmHG Vent. Rate : 059 BPM Atrial Rate : 058 BPM P-R Int : 185 ms QRS Dur : 122 ms QT Int : 441 ms P-R-T Axes : 065 048 025 degrees QTc Int : 437 ms Sinus rhythm Confirmed by Zana Gooden ([id number]) on 08/08/2018 2:44:32 PM Referred By: Reilly Chavez Confirmed By:Zana Gooden
--- NOTE | 2018-08-08 14:45 | CPEKG ---
Test Reason : OPEN Blood Pressure : / mmHG Vent. Rate : 066 BPM Atrial Rate : 066 BPM P-R Int : 184 ms QRS Dur : 121 ms QT Int : 434 ms P-R-T Axes : 068 049 030 degrees QTc Int : 455 ms Sinus rhythm Confirmed by Zana Gooden ([id number]) on 08/08/2018 2:45:03 PM Referred By: Reilly Chavez Confirmed By:Zana Gooden
[2018-08-08] MEDS: NEBIVOLOL HCL 5 MG TAB PO SCH ×2 (21:37→21:38)
[2018-08-09 04:37] LABS: PLATELET COUNT 183 10^3/uL (150-400)
[2018-08-09] MEDS: LOSARTAN POTASSIUM 25 MG TAB PO SCH ×2 (09:16→13:25)
[2018-08-09] MEDS: MULTIVITAMINS 1 EACH TAB PO SCH ×2 (09:18→13:27)
[2018-08-09] MEDS: ATORVASTATIN CALCIUM 10 MG TAB PO SCH ×2 (09:18→13:26)
[2018-08-09] MEDS ORDERED: MIDAZOLAM 2 MG/2 ML VIAL ONE ×2 (09:25→10:23)
[2018-08-09] MEDS ORDERED: fentaNYL 100 MCG/2 ML INJ ONE ×2 (09:25→10:56)
[2018-08-09] MEDS ORDERED: LIDOCAINE 1% 300 MG/30 ML SDV ONE (09:25)
[2018-08-09] MEDS ORDERED: BUPIVACAINE 0.75% 10 ML SDV ONE (09:26)
[2018-08-09] MEDS ORDERED: BACITRACIN IRRIGATION/NS 50,000 UNITS/1,000 ML BTL IRR ONE (09:38)
[2018-08-09] MEDS ORDERED: ceFAZolin 2 GM/DEXTROSE 100 ML IV ONE (09:38)
[2018-08-09] MEDS ORDERED: NS 1,000 ML IV ONE (09:38)
--- NOTE | 2018-08-09 09:59 | PDPROPOC ---
Sedation Plan of Care Sedation Plan of Care: vital signs stable, mental status noted, patient educated of risks, benefits, alternatives, patient can tolerate sedation ASA Classification: ASA 1 Planned drugs: fentanyl, midazolam Mallampati Score: Class 2 Mallampati Reference Image: Patient passed 3-3-2 rule?: Yes
--- NOTE | 2018-08-09 10:00 | PDHPUP ---
History & Physical Update H&P update statement: This history and physical update is based on an assessment of the patient which was completed after admission or registration (within 24 hours), but prior to the surgery/procedure. H&P update: H&P reviewed & patient examined H&P changes: RA lead is dislodged based on device check and CXR. Will reposition, risks d.w. patient. No pneumothorax on CXR
--- NOTE | 2018-08-09 13:28 | ASMTCMCOM ---
CM Note CM Note Notes: CM reviewed pts chart. Pt is a 62 y/o man admitted for a SP pacemaker placement. Pt will most likely d/c independent without any needs. No therapies ordered at this time. CM available for changes. Plan: Independent Date Signed: 08/09/2018 01:28 PM Electronically Signed By:SACHA Bustos
[2018-08-09 15:48] VITALS: BP 159/97
--- NOTE | 2018-08-10 19:32 | CPEKG ---
Test Reason : OPEN Blood Pressure : / mmHG Vent. Rate : 060 BPM Atrial Rate : 061 BPM P-R Int : 188 ms QRS Dur : 120 ms QT Int : 437 ms P-R-T Axes : 053 046 033 degrees QTc Int : 437 ms Sinus rhythm Nonspecific intraventricular conduction delay Confirmed by Zana Gooden ([id number]) on 08/10/2018 7:31:47 PM Referred By: Reilly Chavez Confirmed By:Zana Gooden
--- NOTE | 2018-08-10 19:35 | CPEKG ---
Test Reason : OPEN Blood Pressure : / mmHG Vent. Rate : 053 BPM Atrial Rate : 053 BPM P-R Int : 198 ms QRS Dur : 123 ms QT Int : 443 ms P-R-T Axes : 041 032 013 degrees QTc Int : 416 ms Sinus rhythm Nonspecific intraventricular conduction delay Confirmed by Zana Gooden ([id number]) on 08/10/2018 7:35:19 PM Referred By: Reilly Chavez Confirmed By:Zana Gooden
--- NOTE | 2018-08-14 13:23 | GDS ---
[f rep st] DISCHARGE SUMMARY ADMISSION DIAGNOSIS: Ventricular pauses. DISCHARGE DIAGNOSIS: Ventricular pauses status post implant of a dual-chamber permanent pacemaker, status post atrial lead revision. PROCEDURES PERFORMED DURING HOSPITALIZATION: 1. Electrocardiogram. 2. Implant of a dual-chamber permanent pacemaker. 3. Chest x-ray. HOSPITAL COURSE: The patient presented 08/08/2018 for a dual-chamber permanent pacemaker in the setting of multiple ventricular pauses noted on a recent extended ECG monitor. He underwent successful implantation of a dual-chamber permanent pacemaker with Dr. Korey Jeffrey on 08/08/2018. However, device interrogation the following morning demonstrated right atrial lead dislodgement , and he underwent lead revision in the morning of 08/09/2018. His right atrial lead was successfully repositioned and slack was added to his ventricular lead. The patient has done very well in the postprocedure setting and he was appropriate and stable for discharge home 08/09/2018 around 1700. CURRENT PHYSICAL EXAMINATION: GENERAL: Alert and oriented x4. No apparent distress. VITAL SIGNS: Blood pressure 159/97, heart rate 66, respiratory rate 17, SpO2 of 96% on room air, temp 36.6 degrees Celsius. RESPIRATORY: Lungs are clear to auscultation without adventitious breath sounds. CARDIAC: Normal S1, S2. No S3 or S4. Rhythm is regular. ABDOMEN: Normoactive bowel sounds times all 4 quadrants. No masses or tenderness. Soft to palpation. SKIN: [place], warm, dry without cyanosis, clubbing, or peripheral edema. Left pectoral incision is clean and dry with a transparent dressing in place. No evidence of hematoma or oozing from the site. EXTREMITIES: Pulses 2+ bilaterally. No edema. LABORATORY STUDIES: Drawn 08/09/2018 demonstrate relatively stable CBC and BMP compared to preprocedure. PROCEDURE: Implant of dual-chamber permanent pacemaker and right atrial lead revision as mentioned above. Post-procedure chest x-ray this morning demonstrates stable lead positioning. DISCHARGE DISPOSITION: Patient will be discharged home in stable condition. He is under activity restrictions as below. DISCHARGE MEDICATIONS: Please see discharge medication reconciliation sheet for full details. Please note that no medication changes were made during this hospitalization. DISCHARGE INSTRUCTIONS: Post-pacemaker instructions were reviewed with patient in detail. 1. We discussed activity restrictions including lifting no more than 5 pounds and avoidance of pulling, pushing, or putting his left arm behind his back for 4 weeks. 2. He will also avoid intense upper body exertion for 6 weeks. 3. He will keep his incision clean and dry, and he will keep his dressing in place for 1 week. If his dressing becomes saturated for any reason, he will remove it and leave his incision open to air. 4. His sheree will be removed in 1 week at his upcoming wound check. 5. He will follow up with our device clinic in [address] Jeffrey in 4 weeks. 6. The patient will continue to monitor lifelong for signs and symptoms of infection or other changes to his left pectoral incision/pocket throughout his lifetime. 7. At the time of discharge, patient verbalized understanding regarding all discharge instructions without questions or concerns. He has a followup visit scheduled in 1 week with our device clinic, in [address] Jeffrey. He will contact us with any new or concerning symptoms prior to his upcoming visit. Time spent on discharge greater than 30 minutes. /[id number]/MODL MTDD
== END 2018-08-09 18:10 | disposition home or self-care (01) ==
LOC: FCATH 09:34 → F2W 12:10
PROVIDERS: ADMIT Internal Medicine Cardiovascular Disease; ATTEND Internal Medicine Cardiovascular Disease
DX: R55 Syncope and collapse (principal); I49.5 Sick sinus syndrome; I10 Essential (primary) hypertension; G47.33 Obstructive sleep apnea (adult) (pediatric)
CPT/HCPCS: 33208; 33286; 71045; 71046; 93005; G0378; C1785; C1898; J0690; J2250; J2704; J3010; Q9967